=== PATIENT | female | born 1995 | race Caucasian/White ===

== ENCOUNTER 2024-05-31 05:50 | Inpatient (IN) | payer BC ==
[2024-05-31] MEDS ORDERED: TERBUTALINE 1 MG/ML VIAL SQ PRN (06:12)
[2024-05-31] MEDS ORDERED: miSOPROStoL 200 MCG TAB RECTAL PRN (06:12)
[2024-05-31] MEDS ORDERED: OXYTOCIN 10 UNIT/ML 1 ML VIAL IM PRN (06:12)
[2024-05-31] MEDS ORDERED: LIDOCAINE 0.5% (PF) 5 MG/ML (50 ML SDV) SQ PRN (06:12)
[2024-05-31] MEDS ORDERED: miSOPROStoL 200 MCG TAB PO PRN (06:12)
[2024-05-31] MEDS ORDERED: METHYLERGONOVINE 0.2 MG/ML 1 ML AMP IM PRN (06:12)
[2024-05-31] MEDS ORDERED: CARBOPROST TROMETHAMINE 250 MCG/ML 1 ML AMP IM PRN (06:12)
[2024-05-31] MEDS ORDERED: TRANEXAMIC 1,000 MG/100ML-NACL 1,000 MG in EMPTY BAG 1 BAG IV PRN (06:12)
[2024-05-31] MEDS: LACTATED RINGERS 1,000 ML IV SCH (06:15)
[2024-05-31 06:42] LABS: ALT 26 U/L (4-34); AST 54 U/L (14-36); African American GFR (CKD) >90 (>60 ml/min/1.73 sqM); Blood Urea Nitrogen 7 mg/dL (7-17); Non-African American GFR(CKD) >90 (>60 ml/min/1.73 sqM); Uric Acid 6.3 mg/dL (3.7-7.4)
[2024-05-31 06:50] LABS: INR 0.9 (<1.2)
[2024-05-31 06:51] LABS: Partial Thromboplastin Time 22.7 sec (22.0-30.0); Prothrombin Time 9.9 sec (10.0-12.5)
[2024-05-31 06:58] LABS: Basophils % (A) 0 %; Eosinophils # (A) 0.1 k/uL (0-0.7); Eosinophils % (A) 1 %; HCT 43.8 % (34.0-46.0); HGB 14.4 gm/dL (11.4-16.0); Lymphocytes # (A) 2.3 k/uL (1.0-4.8); Lymphocytes % (A) 16 %; MCHC 32.9 g/dL (31.0-37.0); MCV 91.1 fL (80.0-100.0); Mean Platelet Volume 8.7; Monocytes # (A) 0.7 k/uL (0-1.0); Monocytes % (A) 5 %; Neutrophils # (A) 11.2 k/uL (1.3-7.7); Neutrophils % (A) 77 %; Platelet Count 264 k/uL (150-450); RBC 4.81 m/uL (3.80-5.40); RDW 13.1 % (11.5-15.5); WBC 14.6 k/uL (3.8-10.6)
[2024-05-31 07:01] LABS: LDH 421 U/L (120-246)
[2024-05-31] MEDS ORDERED: fentaNYL (PF) 50 MCG/ML 5 ML AMP ONE (07:05)
[2024-05-31] MEDS ORDERED: ROPIVACAINE 5 MG/ML 30 ML VIAL ONE (07:05)
[2024-05-31] MEDS ORDERED: SODIUM CHLORIDE 0.9% 250 ML BAG ONE (07:05)
--- NOTE | 2024-05-31 08:47 | P.HPOB ---
History of Present Illness H&P Date: 05/31/24 Ms. Garcia is a 28 year old at 38 weeks and 5 days with EDC of 06/09/24 who presents for onset of labor which started around 2:30am. The has been uncomplicated. Obstetric history: [facility] work-up: blood type B+, antibody screen negative, rubella immune, VDRL non-reactive, HBsAg negative, HIV negative, HCV Ab non-reactive, gonorrhea negative, chlamydia negative, Trichomonas negative, GBS negative. Past Medical History Past Medical History: No Reported History Additional Past Medical History / Comment(s): hypoglycemia History of Any Multi-Drug Resistant Organisms: None Reported Additional Past Surgical History / Comment(s): repair of cleft uvula at 9 months old Past Anesthesia/Blood Transfusion Reactions: No Reported Reaction Past Psychological History: Anxiety Smoking Status: Never smoker Past Alcohol Use History: None Reported Past Drug Use History: None Reported - Past Family History Mother Family Medical History: No Reported History Medications and Allergies Home Medications Medication Instructions Recorded Confirmed Type Cetirizine HCl [Zyrtec] 10 mg PO DAILY 05/31/24 05/31/24 History Vit No.179/Iron/Folic 1 each PO DAILY 05/31/24 05/31/24 History [ Tablet] Allergies Allergy/AdvReac Type Severity Reaction Status Date / Time No Known Allergies Allergy Verified 05/31/24 05:56 Exam Vital Signs Pulse Resp BP Pulse Ox 05/31/24 06:41 81 20 146/91 99 05/31/24 06:00 81 20 146/91 99 Intake and Output 05/30/24 05/31/24 05/31/24 22:59 06:59 14:59 Other: Weight 86.183 kg Focused physical exam is performed. This is a healthy-appearing in no apparent distress. Breathing is non-labored. Abdomen is gravid and non-tender. Cervical exam was 5/80/-2 on arrival and membranes intact. Extremities non- tender and non-edematous. Results Result Diagrams: 05/31/24 06:12 05/31/24 06:12 Abnormal Lab Results - Last 24 Hours (Table) 05/31/24 05/31/24 05/31/24 Range/Units 06:12 06:12 06:12 WBC 14.6 H (3.8-10.6) k/uL Neutrophils # 11.2 H (1.3-7.7) k/uL PT 9.9 L (10.0-12.5) sec Fibrinogen 587 H (200-500) mg/dL Creatinine 0.39 L (0.52-1.04) mg/dL AST 54 H (14-36) U/L Lactate Dehydrogenase 421 H (120-246) U/L Assessment and Plan Assessment: 28 year old at 38weeks and 5 days presenting for labor Plan: Admit, clear liquid diet, pitocin titrated per protocol, epidural PRN, continuous EFM and tocometer, anticipate vaginal delivery.
[2024-05-31 08:59] LABS: Appearance,Urine Clear (Clear); Bilirubin,Urine Negative (Negative); Blood,Urine Negative (Negative); Color,Urine Yellow; Glucose,Urine (UA) Negative (Negative); Ketones,Urine 2+ (Negative); Leukocyte Esterase,Urine Negative (Negative); Mucus,Urine Few /hpf; Nitrite,Urine Negative (Negative); PH, Urine 6.5 (5.0-8.0); Protein,Urine 2+ (Negative); RBC,Urine 35 /hpf (0-5); Specific Gravity,Urine 1.026 (1.001-1.035); Squamous Epithelial Cell,Urine 4 /hpf (0-4); Urobilinogen,Urine <2.0 mg/dL (<2.0); WBC,Urine 1 /hpf (0-5)
[2024-05-31 11:21] LABS: Creatinine,Urine Random 146.7 mg/dL; Protein/Creatinine Ratio,Urine 0.627
[2024-05-31] MEDS: OXYTOCIN 30 UNITS/500 ML NS 30 UNIT in SALINE 1 500ML.BAG IV SCH (13:48)
--- NOTE | 2024-05-31 14:14 | P.PROBDLV ---
Vaginal Delivery Note - . Vaginal Delivery Note: DATE OF SERVICE: 05/31/2024 PROCEDURE: Normal Vaginal Delivery ATTENDING: Dr. Bhavana Blanchard MD ESTIMATED BLOOD LOSS: 50 mL FINDINGS: VFI, Apgars . Weight 6 pounds and 13 ounces (3090 grams) PROCEDURE: Ms. Garcia is a 28 year old at 38 weeks and 5 days presenting in labor. The has been uncomplicated, she received care with Dr. Guan. AROM was undertaken at 835 revealing meconium-stained fluid. The patient received epidural anesthesia per her request. The patient was completely dilated at 1149. She pushed effectively with Category II FHTs. A viable female infant was delivered at 1344. The infant was placed on the maternal abdomen and bulb suctioned. The infant was noted to be spontaneously crying. Cord was clamped and cut after a 30-second delay. The infant was handed off to the pediatric team. Placenta was delivered whole with gentle cord traction at 1348. Oxytocin was started to facilitate uterine tone. Uterine fundus was found to be firm and below the umbilicus upon fundal massage. Thorough examination of the ce rvix, vagina, periurethral area, and perineum revealed no lacerations. The patient is stable and allowed to begin the bonding process.
[2024-05-31] MEDS ORDERED: diphenhydrAMINE 25 MG CAP PO PRN (14:27)
[2024-05-31] MEDS ORDERED: diphenhydrAMINE 50 MG CAP PO PRN (14:27)
[2024-05-31] MEDS ORDERED: LANOLIN CREAM 1 GM TUBE TOPICAL PRN (14:27)
[2024-05-31] MEDS ORDERED: BENZOCAINE/MENTHOL SPRAY 1 GM/SPRAY AEROSOL TOPICAL PRN (14:27)
[2024-05-31] MEDS ORDERED: SIMETHICONE 80 MG CHEWABLE PO PRN (14:27)
[2024-05-31] MEDS ORDERED: HYDROCORTISONE 2.5% RECTAL CREAM 30 GM TUBE RECTAL PRN (14:27)
[2024-05-31] MEDS ORDERED: ZOLPIDEM 5 MG TAB PO PRN (14:27)
[2024-05-31] MEDS ORDERED: diphenhydrAMINE 50 MG/ML 1 ML VIAL IVP PRN ×2 (14:27)
[2024-05-31] MEDS: IBUPROFEN 800 MG TAB PO SCH (16:58)
[2024-05-31] MEDS: SENNOSIDES-DOCUSATE SODIUM 1 EACH TAB PO SCH (20:25)
[2024-06-01 05:38] LABS: Basophils % (A) 0 %; Eosinophils # (A) 0.2 k/uL (0-0.7); Eosinophils % (A) 2 %; HCT 37.1 % (34.0-46.0); Lymphocytes # (A) 2.9 k/uL (1.0-4.8); Lymphocytes % (A) 25 %; MCH 29.9 pg (25.0-35.0); MCHC 32.3 g/dL (31.0-37.0); MCV 92.5 fL (80.0-100.0); Mean Platelet Volume 9.1; Monocytes # (A) 0.5 k/uL (0-1.0); Monocytes % (A) 4 %; Neutrophils # (A) 7.8 k/uL (1.3-7.7); Neutrophils % (A) 67 %; Platelet Count 210 k/uL (150-450); RBC 4.01 m/uL (3.80-5.40); RDW 13.5 % (11.5-15.5); WBC 11.8 k/uL (3.8-10.6)
[2024-06-01] MEDS: ACETAMINOPHEN TAB 500 MG TAB PO SCH (05:58)
--- NOTE | 2024-06-01 06:07 | P.DS ---
Providers Date of admission: 05/31/24 06:02 Expected date of discharge: 06/01/24 Attending physician: Bhavana Blanchard MD Primary care physician: Stated None Hospital Course: Ms. Garcia is a 28 year old now PPD#1 s/p . During labor, she did develop mild-range pressures. PIH labs were within normal limits but a P:C of 0.6 was noted, giving her the diagnosis of pre-eclampsia without severe features. Her delivery was otherwise uncomplicated. The patient is doing well this morning and had no acute events overnight. She has no complaints this morning. She reports minimal lochia, passing flatus, voiding without difficulty, ambulating, and eating/drinking without nausea or vomiting. doing well at bedside. She denies chest pain, shortness of breathing, fevers, or chills overnight. She denies pain or swelling in the legs. restrictions are reviewed with the patient including pelvic rest for 6 weeks. The patient is encouraged to call the office if she experiences any heavy bleeding, foul- smelling discharge, breast complaints, or any if she has any other concerns. She will follow up in the office with in 1 week for blood pressure check. All questions are answered. Patient Condition at Discharge: Good Plan - Discharge Summary New Discharge Prescriptions: No Action Vit No.179/Iron/Folic [ Tablet] 1 each PO DAILY Cetirizine HCl [Zyrtec] 10 mg PO DAILY Discharge Medication List Cetirizine HCl [Zyrtec] 10 mg PO DAILY 05/31/24 [History] Vit No.179/Iron/Folic [ Tablet] 1 each PO DAILY 05/31/24 [History] Follow up Appointment(s)/Referral(s): Bhavana Blanchard MD [STAFF PHYSICIAN] - 1 Week (blood pressure check) Activity/Diet/Wound Care/Special Instructions: Instructions 1. Do not begin any exercise program for 3 weeks. 2. Do not resume sexual relations for 6 weeks or longer if uncomfortable. 3. You may take tub baths or showers at any time. 4. You may use tampons if desired after 6 weeks. 5. Keep any areas repaired with stitches clean and dry. 6. If you are not nursing, wear a good fitting, supportive bra during the day and limit fluid intake for at least 1 week to prevent breast engorgement. 7. Call the office, , within the next week to make appointment for your 6 week checkup if it has not already been made. 8. Report any of the following occurrences to the doctor promptly: a. Heavy, excessive bleeding b. Chills, fever c. Burning or frequency of urination d. Pain or redness and breasts if nursing e. Increasing pain or swelling of vulva (stitches). In addition to the above instructions, the following additional should be followed: 1. No heavy lifting or straining (exercising) until after 6 week checkup. 2. Keep abdominal incision clean and dry: You may wear a dressing if more comfortable. 3. Make office appointment for 2 weeks after delivery date. Discharge Disposition: HOME SELF-CARE
[2024-06-01 08:17] VITALS: BP 129/87; PULSE 81; RESP 14; TEMP 98.8
== END 2024-06-01 15:00 | disposition home or self-care (01) | DRG 807 ==
LOC: FBPOP 05:50 → 4FBP 06:02
PROVIDERS: ADMIT Obstetrics & Gynecology; ATTEND Obstetrics & Gynecology
PROC: 10907ZC Drainage of Amniotic Fluid, Therapeutic from Products of Conception, Via Natural or Artificial Opening (ICD-10-PCS; principal; 2024-05-31)
PROC: 10E0XZZ Delivery of Products of Conception, External Approach (ICD-10-PCS; principal; 2024-05-31)
DX: O14.04 Mild to moderate pre-eclampsia, complicating childbirth (principal); O99.344 Other mental disorders complicating childbirth; F41.9 Anxiety disorder, unspecified; O77.0 Labor and delivery complicated by meconium in amniotic fluid; Z79.899 Other long term (current) drug therapy; Z3A.38 38 weeks gestation of pregnancy; Z37.0 Single live birth
CPT/HCPCS: 59025; 81001; 82565; 82570; 83615; 84156; 84450; 84460; 84520; 84550; 85025; 85384; 85610; 85730; 86850; 86900; 86901; 99213